=== PATIENT | male | born 1980 | race Caucasian/White ===

== ENCOUNTER → 2018-07-05 | Outpatient (CLI) | payer OTHER ==
[~2018-07-05] MED LIST: ACET325UDC GT; ACET325UDC PO; ACET325UDC PT; ACET650SUP PR; ALBUIS IH; ASPI81CH GT; ASPI81CH PO; ASPI81CH PT; ASPI81EC GT; AZIT200SU PO; Acephen650 MG PR; Acidophilus La100 GM PO; Acidophilus La100 GM PT; Actos15 MG PO; Augmentin 875-1 EACH PO; BACLOFEN; BACLOFEN PUMP IL; Benefiber98 GM PT; Biscolax10 MG PR; CALCA500S6 GT; CALCA500S6 PO; CALCA500S6 PT; CEPH250SUA PO; CETI1SY PO; CHOL10002 GT; CHOL10002 PT; CODACEE120 PO; COLC.6 GT; COLC.6 PO; COLON HEALTH; COLON HEALTH GT; CVS DISPOSABLE399 ML PR; DIAZ10 PO; DIAZ2 GT; DIAZ5 GT; DIAZ5 PO; DIAZ5 PT; DIAZEPAM; DILT30 PO; DILT60 GT; DILT60ER PO; DIOCTO PT; DIVA125 PO; DIVA125EC PO; DOC100SO GT; ERGO400 GT; ERGO400 PO; ERYT.5TO BOTHEYES; FIBE4P PO; FLUC150A PO; FLUO.01TC TOP; FLUO60T TOP; FLUOCIN ACET; FLUT.05NI; FURO100EL PO; FURO100EL PT; FURO20 PO; FURO40 GT; Flonase 0.05% N16 GM INH; GLIP5 PT; GUAI100SY PO; HYDACE5 GT; HYDACE7.5 PO; HYDACE7.5L GT; HYDACE7.5L PO; HYDCOR2.5B TOP; HYDROCODON-ACET15 ML PT; HYDROCORTISONE CREAM; HYDROQUINONE; IBUP100S PO; INSUASPI SC; INSULANPEN SC; IPRAIS NEB; ISOSOURCE GT; K-Phos Origina500 MG PO; LACT PO; LANS30EC PO; LAVAP17G PO; LEVA.63IS IH; LEVFLO500 PT; LEVO750 PO; LIQUACEL LIQUID30 ML PT; LOPE2C PT; LORA10 PO; Lisinopril2.5 MG PT; METO10SY PO; METO10SY PT; METO25 PT; METO25ER PO; METO50 GT; METO50 PO; METO50 PT; METR500 PT; MI ACID; MOMENI; MUPI2TC TOP; MUPI2TO TOP; NUTREN; NYST100P TOP; NYST100TC TOP; OLME20 GT; OLME20 PO; OMEP20ER PO; OMEP20ER PT; ONDA4SO PT; PIOG15 PT; POLY500 PO; POTA20LUD GT; POTA20LUD PO; POTA20LUD PT; Phospha 250 Ne250 MG PT; Potassium Chloride GT; QPAP; SENN8.8S8 GT; SENN8.8S8 PO; SILACE; SIME80CH GT; SODPHOSO PR; SPIR25 PO; Senna Laxative8.6 MG PT; TERA5 GT; TERA5 PO; TOUJEO SOL300 UNIT/1 SC; VALP250S60; VALP250S60 GT; VALP250S60 PO; VALP250S60 PT; ZERTEC; ZITHROMAX; [UNRECOGNIZED DRUG - CODE]; [UNRECOGNIZED DRUG - OTHER]; [UNRECOGNIZED DRUG - OTHER] PT
[2018-07-05 13:41] LABS: Appearance, Urine Clear (Clear); Bilirubin, Urine Neg (Neg); Blood, Urine Neg (Neg); Color, Urine Yellow (P-Yellow); Glucose Qualitative, Urine 1+ (Neg); Ketones, Urine Neg (Neg); Leukocyte Esterase, Urine Neg (Neg); Nitrite, Urine Neg (Neg); Protein, Urine Neg (Neg); Specific Gravity, Urine 1.015 (1.003-1.022); Urobilinogen, Urine 3+ (Normal)
== END ==
LOC: LAB SRC 05:00 → LAB SHORT 05:00
PROVIDERS: Internal Medicine
DX: N39.0 Urinary tract infection, site not specified (principal)
CPT/HCPCS: 81003

== ENCOUNTER → 2018-10-07 | Outpatient (CLI) | payer OTHER | END | disposition home or self-care (01) | LOC: LAB SRC 11:35 → LAB SHORT 11:35 → EDSTATUS 10-06 10:35 → LAB FUT 10-06 10:35 | DX: R30.0 Dysuria (principal) | CPT/HCPCS: 87077; 87086; 87186 ==

== ENCOUNTER → 2018-12-16 | Outpatient (CLI) | payer OTHER ==
[2018-12-16 13:11] LABS: Bilirubin, Urine Neg (Neg); Blood, Urine 4+ (Neg); Glucose Qualitative, Urine Neg (Neg); Ketones, Urine Neg (Neg); Leukocyte Esterase, Urine 3+ (Neg); Nitrite, Urine Neg (Neg); Protein, Urine 3+ (Neg); Specific Gravity, Urine 1.015 (1.003-1.022); Urobilinogen, Urine 1+ (Normal)
[2018-12-16 13:25] LABS: Appearance, Urine Turbid (Clear); Color, Urine Yellow (P-Yellow)
[2018-12-16 13:32] LABS: White Blood Cells, Urine TNTC /hpf (0-5)
[2018-12-16 13:33] LABS: Bacteria Many /hpf; Squamous Epithelial Cells Few /hpf (Few); Transitional Epithelial Cells Few /hpf (0-Rare)
== END | disposition home or self-care (01) ==
LOC: LAB SHORT 10:06 → LAB SRC 10:06 → EDSTATUS 09-02 14:05 → LAB FUT 09-02 14:05
PROVIDERS: Internal Medicine
DX: R30.0 Dysuria (principal)
CPT/HCPCS: 81001; 87077; 87086; 87186

== ENCOUNTER → 2019-05-12 | Outpatient (CLI) | payer OTHER ==
[~2019-05-12] MED LIST changes: +Ativan1 MG PO; +HIPREX1 GM PT; +MORP20L SL; +PHILLIPS' COLO1 EACH PT; +SPRITAM250 MG PO; -VALP250S60 PT; +Vitamin C100 M1 PT; +Vitamin D2000 UNIT PT; +[UNRECOGNIZED DRUG - OTHER] PT
[2019-05-12 18:26] LABS: Bilirubin, Urine Neg (Neg); Blood, Urine Neg (Neg); Glucose Qualitative, Urine Neg (Neg); Ketones, Urine Neg (Neg); Leukocyte Esterase, Urine 1+ (Neg); Nitrite, Urine Neg (Neg); Protein, Urine Neg (Neg); Urobilinogen, Urine 1+ (Normal)
[2019-05-12 19:15] LABS: Appearance, Urine Hazy (Clear); Color, Urine Yellow (P-Yellow)
[2019-05-12 19:16] LABS: Red Blood Cells, Urine Not Seen /hpf (0-2); White Blood Cells, Urine 0-2 /hpf (0-5)
[2019-05-12 19:17] LABS: Bacteria Mod /hpf; Squamous Epithelial Cells Rare /hpf (Few); Triple Phosphate Crystals Mod /hpf
== END | disposition home or self-care (01) ==
LOC: LAB SHORT 13:28 → LAB SRC 13:28 → LAB FUT 04-29 16:20
PROVIDERS: Internal Medicine
DX: R30.0 Dysuria (principal)
CPT/HCPCS: 81001; 87077; 87086; 87186

== ENCOUNTER 2019-06-19 11:57 | Inpatient (IN) | payer OTHER ==
[~2019-06-19] VITALS: Ht 162.6 cm; Wt 65.3 kg
[~2019-06-19 11:57] MED LIST changes: -Ativan1 MG PO; -HIPREX1 GM PT; -MORP20L SL; -PHILLIPS' COLO1 EACH PT; -SPRITAM250 MG PO; -Vitamin C100 M1 PT; -Vitamin D2000 UNIT PT
[2019-06-19 12:25] LABS: Calcium, Ionized (POC) 1.05 mmol/L (1.10-1.46); Chloride (POC) 111 mmol/L (98-108); Creatinine (POC) 1.9 mg/dL (0.8-1.3); Glucose (ISTAT POC) 605 mg/dL (70-99); Potassium (POC) 3.8 mmol/L (3.5-5.5); Sodium (POC) 149 mmol/L (135-148); Total CO2 (POC) 25 mmol/L (21-32)
[2019-06-19 12:27] LABS: BASOPHILS ABSOLUTE AUTO 0.07 K/mm3 (0.00-0.23); BASOPHILS PERCENT AUTO 0 % (0-2); EOSINOPHILS PERCENT AUTO 0 % (0-6); Hematocrit 50.4 % (37.0-53.0); Hemoglobin 15.3 g/dL (13.5-17.5); IMMATURE GRAN ABSOLUTE AUTO 0.33 K/mm3 (0.00-0.10); IMMATURE GRAN PERCENT AUTO 2 % (0-1); LYMPHOCYTES ABSOLUTE AUTO 0.89 K/mm3 (0.84-5.20); LYMPHOCYTES PERCENT AUTO 4 % (21-46); MONOCYTES ABSOLUTE AUTO 1.17 K/mm3 (0.16-1.47); MONOCYTES PERCENT AUTO 5 % (4-13); Mean Corpuscular HGB Conc 30.4 g/dL (31.5-36.5); Mean Corpuscular Volume 92 fL (80-100); Mean Platelet Volume 10.9 fL (9.1-12.4); NEUTROPHILS PERCENT AUTO 89 % (41-73); NRBC ABSOLUTE 0.08 K/mm3 (0.00-0.02); NRBC Auto 0.4 /100 WBC (0.0-0.2); Platelet Count 370 K/mm3 (150-400); RDW Coefficient Variation 18.6 % (11.7-14.2); RDW Standard Deviation 58.1 fL (35.1-46.3); Red Blood Cell Count 5.46 M/mm3 (4.30-5.90); White Blood Cell Count 22.16 K/mm3 (4.00-11.30)
[2019-06-19 12:44] LABS: Albumin, Blood 2.9 g/dL (3.4-5.0); Bun/Creatinine Ratio 35.1 (12.0-20.0); Calcium, Blood 8.2 mg/dL (8.5-10.1); Creatinine, Blood 1.68 mg/dL (0.60-1.20); Potassium, Blood 3.7 mmol/L (3.5-5.5)
[2019-06-19 12:45] LABS: Albumin/Globulin Ratio 0.5 (0.8-1.8); Bilirubin, Total 0.6 mg/dL (0.1-1.0); Globulin, Blood 5.4 g/dL (2.2-4.0); International Normalized Ratio 1.22; Prothrombin Time Results 12.9 Sec (9.7-11.5); Total Protein, Blood 8.3 g/dL (6.4-8.2)
[2019-06-19 14:12] LABS: Source, Urine Catheter
[2019-06-19 14:15] LABS: Bilirubin, Urine Neg (Neg); Blood, Urine 2+ (Neg); Glucose Qualitative, Urine 4+ (Neg); Ketones, Urine 1+ (Neg); Leukocyte Esterase, Urine 1+ (Neg); Nitrite, Urine Neg (Neg); Protein, Urine 3+ (Neg); Urobilinogen, Urine 1+ (Normal)
[2019-06-19 14:21] LABS: Appearance, Urine Clear (Clear); Color, Urine Amber (P-Yellow)
[2019-06-19 14:25] LABS: Bacteria Few /hpf; Squamous Epithelial Cells Rare /hpf (Few)
[2019-06-19 17:14] LABS: Glucose, Blood 326 mg/dL (70-99)
--- NOTE | 2019-06-19 18:22 | NUR ---
PT TO ICU 3 FROM ER AT 1516, CARDIAC MONITORING INITIATED. HR 160, SBP 80'S, TEMPERATURE 101.6, PT HOT TO TOUCH, UE'S AND HEAD ARE TREMULOUS, MOTHER AT BEDSIDE STATES THIS IS NOT NORMAL. 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 SPO2 MID 90'S ON 6L/NC, LS COARSE T/O, NT SUCTIONING YIELDS MODERATE AMOUNTS OF WHITE SPUTUM. GUO WITH CLOUDY MARCELA URINE, 1+ EDEMA TO LE'S. CAP REFILL SLUGGISH IN ALL EXTREMS, HAND AND FEET COOL TO TOUCH, LE PULSES BY DOPPLER ONLY. DR. SHAH NOTIFIED OF PT'S VS AT 1630, INSTRUCTED TO CONTINUE IVF AND RESUME ABX. VANCO, ROCEPHIN, AND ZITHROMAX INFUSING, IVF CONTINUED. LACTIC ACID LEVEL INCREASED, TEMPERATURE UP TO 103.3, MAP 50'S-60'S, HR REMAINS 160'S. TYLENOL ADMINISTERED, DR. SHAH NOTIFIED, DR. GIPSON CONSULTED. LEVOPHED INITIATED PER DR. GIPSON. INSULIN ADMINISTERED PER ORDERS FOR HYPERGLYCEMIA, WILL CONTINUE TO MONITOR SUGARS. ORAL TEMP AT 1825 102.9, PT CONTINUES TO SHIVER. MOTHER NO LONGER AT BEDSIDE. REPORT TO ONCOMING SHIFT.
--- NOTE | 2019-06-19 21:00 | NUR ---
ASSUMPTION OF CARE ASSUMED CARE OF PT @ 1850. DR GIPSON IN ROOM, PT UNRESPONSIVE, TREMULOUS, POSS SEIZURES, 8MG LORAZEPAM ORDERED AND ADMINISTERED. O2 SATURATIONS DECREASED TO 73%, NON REBREATHER MASK APPLIED @ 15L, SLOW RECOVERY, RESPIRATIONS EVEN BUT LABORED, TACHYPNEIC WITH RR 25-30'S, LS COARSE, ORAL AND NT SUCTION REQUIRED TO CLEAR SECRETIONS. MONITOR SHOWS TACHYCARDIA, HR 150-160'S, LEVO INFUSING @ 3mcg/min, 4TH LITER BOLUS OF LR INFUSING. RADIAL PULSES STRONG, L HAND PURPLE DISCOLORATION NOTED. EXTREMITIES COOL. PEG IN PLACE AT UPPER MID ABD, BOWEL TONES HYPOACTIVE. GUO IN PLACE DRAINING DARK YELLOW URINE. CONTRACTURES NOTED BILAT TO HANDS AND LEGS, HX OF CEREBRAL PALSY, WHEELCHAIR BOUND AT BASELINE.
[2019-06-19 22:16] LABS: Valproic Acid 15.2 ug/mL (50.0-100.0)
[2019-06-19 22:18] LABS: Anion Gap 7 mmol/L (6-16); Blood Urea Nitrogen 58 mg/dL (8-24); Bun/Creatinine Ratio 31.4 (12.0-20.0); CO2, Blood 27 mmol/L (21-32); Calcium, Blood 8.1 mg/dL (8.5-10.1); Chloride, Blood 121 mmol/L (98-108); Creatinine, Blood 1.85 mg/dL (0.60-1.20); Glomerular Filtration Rate 43 (60-); Glucose, Blood 81 mg/dL (70-99); Potassium, Blood 2.3 mmol/L (3.5-5.5); Sodium, Blood 155 mmol/L (136-145)
--- NOTE | 2019-06-19 23:38 | NUR ---
CRITICAL LAB/PEG CALL PLACED TO DR GIPSON REGARDING LABS (POTASSIUM 2.3, LACTIC 2.3, SODIUM 155, GLUCOSE 81), ORDERS TO CHECK CBG Q1H x3, 40 MEQ KCL IV, 80 MEQ KCL PT, AND 1 L D5W @100ml/hr. WHILE ADMINISTERING KCL PT, TUBE BECAME CLOGGED, EFFORTS TO CLEAR TUBE UNSUCCESSFUL. PTS MOTHER STS TUBE HAS NOT BEEN CHANGED IN SEVERAL MONTHS AND HAS EXTRAS AT HOME. MOTHER IS TRAINED TO CHANGE TUBES AND DOES SO AT HOME, CALL TO DR FRED SHANE FOR MOTHER TO CHANGE TUBE AND TO F/U IF THERE ARE ANY DIFFICULTIES.
--- NOTE | 2019-06-20 00:23 | NUR ---
PEG LINE PLACEMENT PTS MOTHER BROUGHT HOME SUPPLIES TO CHANGE PEG TUBE. PLACED WITHOUT DIFFICULTY.
[2019-06-20 03:46] LABS: BASOPHILS ABSOLUTE AUTO 0.03 K/mm3 (0.00-0.23); BASOPHILS PERCENT AUTO 0 % (0-2); EOSINOPHILS PERCENT AUTO 0 % (0-6); Hematocrit 39.4 % (37.0-53.0); Hemoglobin 12.1 g/dL (13.5-17.5); IMMATURE GRAN ABSOLUTE AUTO 0.03 K/mm3 (0.00-0.10); IMMATURE GRAN PERCENT AUTO 0 % (0-1); LYMPHOCYTES PERCENT AUTO 18 % (21-46); MONOCYTES PERCENT AUTO 13 % (4-13); Mean Corpuscular HGB 28.6 pg (26.0-34.0); Mean Corpuscular HGB Conc 30.7 g/dL (31.5-36.5); Mean Corpuscular Volume 93 fL (80-100); Mean Platelet Volume 10.7 fL (9.1-12.4); NEUTROPHILS ABSOLUTE AUTO 6.73 K/mm3 (1.96-9.15); NEUTROPHILS PERCENT AUTO 68 % (41-73); NRBC ABSOLUTE 0.03 K/mm3 (0.00-0.02); NRBC Auto 0.3 /100 WBC (0.0-0.2); Platelet Count 58 K/mm3 (150-400); RDW Coefficient Variation 17.9 % (11.7-14.2); RDW Standard Deviation 59.9 fL (35.1-46.3); Red Blood Cell Count 4.23 M/mm3 (4.30-5.90); White Blood Cell Count 9.89 K/mm3 (4.00-11.30)
[2019-06-20 04:01] LABS: Albumin, Blood 2.4 g/dL (3.4-5.0); Albumin/Globulin Ratio 0.6 (0.8-1.8); Bilirubin, Total 0.4 mg/dL (0.1-1.0); Bun/Creatinine Ratio 31.3 (12.0-20.0); Calcium, Blood 7.7 mg/dL (8.5-10.1); Creatinine, Blood 1.79 mg/dL (0.60-1.20); Globulin, Blood 4.3 g/dL (2.2-4.0); Magnesium, Blood 1.9 mg/dL (1.6-2.4); Potassium, Blood 3.2 mmol/L (3.5-5.5); Total Protein, Blood 6.7 g/dL (6.4-8.2)
[2019-06-20] MEDS ORDERED: METO10SY PT (04:26)
[2019-06-20] MEDS ORDERED: DIAZ5 PT (04:27)
[2019-06-20] MEDS ORDERED: Phospha 250 Ne250 MG PT (04:29)
[2019-06-20] MEDS ORDERED: PHILLIPS' COLO1 EACH PT (04:31)
[2019-06-20] MEDS ORDERED: Vitamin C100 M1 PT (04:31)
[2019-06-20] MEDS ORDERED: Vitamin D2000 UNIT PT (04:32)
[2019-06-20] MEDS ORDERED: CALCA500S6 PT (04:34)
[2019-06-20] MEDS ORDERED: TOUJEO SOL300 UNIT/1 SC (04:36)
[2019-06-20] MEDS ORDERED: HIPREX1 GM PT (04:37)
--- NOTE | 2019-06-20 05:02 | NUR ---
CALL PLACED TO DR GIPSON REGARDING MORNING LABS, UPDATED ON PTS STATUS, 40MEQ KCL IV ORDERED.
--- NOTE | 2019-06-20 06:13 | NUR ---
SHIFT SUMMARY PT OVERALL IMPROVED T/O SHIFT, RESPONDS TO PAINFUL STIMULI, OPENS EYES TO SOUND, STILL DEC LOC PER MOM. LS IMPROVED, DIM IN THE BASES, OXYGEN SATURATIONS>94% ON 2L PER NC. MONITOR SHOWS SINUS TACH, RATE 130'S, LEVO ON SB @ 0100, PT NOW HYPERTENSIVE WITH SBP 130-140'S, INCREASING UP TO 160'S WITH NURSING CARE. PT HAS GROSS MOVEMENT TO UPPER EXTREMITIES. GUO IN PLACE DRAINING YELLOW URINE. MORNING LABS SHOWED LOW POTASSIUM, PHYSICIAN NOTIFED, KCL CURRENTLY INFUSING. 1L D5W INFUSING, CBG'S STABLE @ 102-105. PLAN FOR EEG TODAY, PT PREPPED THIS SHIFT.
--- NOTE | 2019-06-20 10:27 | NUR ---
Pt resting in bed with his eyes closed with no family at bedside at this time. Conferenced with bedside OREN Saucedo and Dr Chun. Pt has shown some improvement. Report given that Pt's mother's goal is to focus on comfort and if needed she is opened to hospice. Palliative Care will remain available for therapeutic visits.
--- NOTE | 2019-06-20 12:29 | NUR ---
Pt visit this afternoon. Pt resting in bed with his eyes closed and is non responsive at this time. Pt appears comfortable with no S/S of distress at this time. Pt's mother is at bedside. Dr Chun is present and educating on Pt's prognosis and options for goals of care. Pt's mother Margo chooses to place Pt on comfort care. This RN remained behind to answer questions and discuss concerns. Margo tearful during visit and offered emotional support. Bedside RN Sheryl and this RN discussed comfort care philosophy. Discussed medications to continue and medications to discontinue. Margo reports she would like to continue tube feedings as Pt can tolerate. Discussed plan to transfer Pt to medical floor. Pt's mother Margo is agreeable for plan. Discussed case with Dr Chun, Dr Mukherjee, and bedside RN Sheryl. Placed order for comfort care, discontinued antibiotics, discontined routine nursing orders, and placed order for transfer to medical floor per V/O from Dr Chun. Palliative Care will remain available.
--- NOTE | 2019-06-20 13:52 | NUR ---
PT ASSESSED AT 0715 THIS AM. PT MINIMALLY RESPONSIVE IN BED. LEVOPHED OFF, BP HTN. PT'S MOTHER AT BEDSIDE. PT GRIMACES TO NOXIOUS STIMULI BUT DOES NOT OPEN EYES. CRACKLES NOTED TO LLL, CLEAR OTHERWISE. HEART RATE 130 SINUS TACH. SATS 92-94% ON 2 L VIA N/C TO MOUTH (PT MOUTH BREATHING ONLY). AT 0750 HEART RATE INCREASED TO 150-160. PT FOUND TO BE HAVING ATYPICAL SEIZURE LIKE ACTIVITY; RYTHMIC TWITCH TO R ARM, HEAD BACK, EYES OPEN, EYE MOVEMENT RYTHMIC/REM MOVEMENTS. ATIVAN 2MG IVP GIVEN STAT WITH GOOD EFFECT. PT RETURNED TO PREVIOUS BASELINE WITHIN 5MIN. AT 0900 PT O2 REQUIREMENTS INCREASED GREATLY. BY 1000 PT WAS REQUIRING AN OXYMIZER AT 12L WITH STATS CONTINUING TO DECLINE. BIPAP WAS CONSIDERED BUT ULTIMATELY DECLINED FOR COMFORT CARE. PALIATIVE CARE AND DR TURNER COUNSELED PT'S MOTHER FOR CLOSE TO AN HOUR. PT CHANGED TO COMFORT CARE AND TRANSFERED TO MEDICAL FLOOR AT 1210. PRIOR TO TAKING PT OFF MONTIORS HEART RATE 140'S+, O2 82-84% ON OXYMIZER 15L, RESP 24.
--- NOTE | 2019-06-20 16:36 | NUR ---
Inital spiritual care note: I met with Zeke's mom, Margo, at bedside. She told me Zeke's story and expressed deep love. She was tearful, but appropriate and responded well to gentle clinical mental health counselor, emotional affirmation, spiritual clinical mental health counselor, and prayer. Zeke appears to be comfortable and well cared-for by nursing. I will remain available.
--- NOTE | 2019-06-20 17:51 | NUR ---
SUMMARY PT TRANSFERRED UP FROM ICU ON COMFORT CARE, PT IS DD, NON-VERBAL, AND BEDBOUND, HE HAS A CHRONIC INDWELLING CATHETER AND A PEG TUBE, PT IS ON 2L NC FOR COMFORT, MOTHER REMAINS AT THE BEDSIDE, PT PLACED ON TRICKLE TUBE FEEDS TOLERATED DESPITE BEING ON COMFORT CARE, PT APPEARS COMFORTABLE, NO ACUTE CHANGES, WILL CONT TO MONITOR
--- NOTE | 2019-06-20 20:00 | NUR ---
FAMILY AT BEDSIDE AND DENIES NEEDS. PLAN TO GET RECLINER CHAIR FOR PT'S MOM WHO PLANS TO STAY THE NIGHT. PT APPEARS COMFORTABLE AT THIS TIME W/EYES CLOSED AND RESPS E/U. HE IS NONVERBAL AT BASELINE AND CURRENTLY ISN'T OPENING EYES TO VOICE. TUBE FEED RUNNING AT 10CC/HR PER DIETARY AND CHRONIC GUO IS PATENT. COMFORT MEASURES BEING MAINTAINED. NO DISTRESS, PAIN OR DISCOMFORT OBSERVED.
--- NOTE | 2019-06-21 01:10 | NUR ---
ROXINOL AND ATROPINE GTTS PROVIDED FOR S/S AIR HUNGER AND DEVELOPMENT OF ORAL SECRETIONS. FAMILY REMAINS AT BEDSIDE. WILL ASSESS FOR EFFECT.
--- NOTE | 2019-06-21 03:50 | NUR ---
PT HAD BM W/ATTENDS CHANGED AND BORIS CARE COMPLETED. PT REPOSITIONED AND SUCTIONED FOR LARGE AMT OF THICK ORAL SECRETIONS. PT SEEMED TO BREATH SOMEWHAT BETTER AFTERWARD. WCTM NEED FOR PRN MEDS BUT PT APPEARS TO BE RESTING W/O S/S DISTRESS AT THIS TIME. FAMILY REMAINS AT BEDSIDE.
--- NOTE | 2019-06-21 06:18 | NUR ---
SUMMARY: PT REMAINS ON COMFORT CARE, IS NONVERBAL AND WAS NONRESPONSIVE MOST OF SHIFT. HE OCCASIONALLY GRIMACED AND OPENED EYES DURING CARE BUT OTHERWISE RESTED COMFORTABLY. ATTENDS CHANGED FOR STOOL INCONTINENCE AND ORAL SUCTIONING PERFORMED PRN FOR THICK SECRETIONS. ATROPINE GTTS WERE COMMENCED FOR GOOD EFFECT AND ROXINOL 10MG PO PRN X1 DOSE WAS GIVEN FOR AN EPISODE OF AIR HUNGER. GUO IS PATENT/DRAINING AND TUBE FEEDING IS RUNNING AT 10 CC/HR. MOUTH CARE PROVIDED PRN AND PT REPOSITIONED PER FAMILY'S REQUESTS. PT'S MOM REMAINS AT BEDSIDE, SUPPORT PROVIDED. TANYA AND REPORT TO DAY RN.
--- NOTE | 2019-06-21 08:58 | NUR ---
Comfort Care Visit: Pt resting in bed with his eyes closed. Pt appears comfortable with no S/S of distress at this time. Pt's mother Margo at bedside. Offered therapeutic listening and support. Discussed the possibility of discharging on hospice if Pt appears to be with us for sometime. Christina reports wishes for Pt to pass at the hospital but is understanding if discharge on hospice is needed. Suggested hospice topic will be revisited if needed. No other concerns reported at this time. Spoke with bedside RN Mark and discussed case. Palliative Care will remain available.
--- NOTE | 2019-06-21 18:29 | NUR ---
SUMMARY PT ON COMFORT CARE, FAMILY IN THE ROOM MOST OF THE TIME, PT REPOSITIONED FOR COMFORT, MED PER EMAR, PLAN TO DC HOME IN AM ON HOSPICE, WILL CONT TO MONITOR
--- NOTE | 2019-06-22 06:14 | NUR ---
ZERO RESIDUAL FROM G TUBE THIS AM. PT TOLERATING TRICKLE FEEDS.
--- NOTE | 2019-06-22 06:15 | NUR ---
SHIFT SUMMARY PT HAS SLEPT THE ENTIRETY OF THE SHIFT AND DOES NOT APPEAR IN ANY PAIN OR DISTRESS. FREE OF SECRETIONS OR AIR HUNGER. TOLERATING TRICKLE FEEDS AT 10 CC HR. PT MOTHER AT BEDSIDE T/O THE SHIFT AND IS ATTENTIVE TO NEEDS. SHE LETS US KNOW WHEN SHE WANTS PT TO BE REPOSITIONED AND STATES EVERY FOUR HOURS BECAUSE THATS HOW SHE DOES IT AT HOME. GUO IN PLACE PATENT AND DRAINING. IV SEIZURE MEDS AND SEIZURE MEDS PER PEG TUBE ORDERED. COMFORT ASSESSED T/O THE SHIFT. PLAN IS FOR DC HOSPICE TODAY. BED IN LOWEST POSITION, CALL LIGHT WITHIN REACH, WILL CONTINUE TO MONITOR AND REPORT TO ONCOMING RN.
--- NOTE | 2019-06-22 06:44 | NUR ---
TUBE FEEDING DAY OREN JOSE STATED THAT SHE CHANGED TUBING AND FEEDS DURING HER SHIFT 06/21/19. PT MOTHER REPORTS THAT SHE HAD DONE SO. HOWEVER PUMP FLASHING THIS AM THAT TUBING NEEDED TO CHANGED, AND THERE IS A LABEL ON THE BAG FROM THE 06/20/19. WITH THIS INDICATOR FROM THE PUMP I DECIDED TO GRAB FRESH TUBING TO CHANGE BAG AND FEEDS. I BROUGHT TUBING IN TO CHANGE BAG. BUT PT MOTHER ADIMATELY REFUSED AND STATED THAT SHE DID NOT HAVE ANY OF HIS SEPCIAL FEEDS HER AND SINCE HE WAS BEING DISCHARGED TODAY THAT SHE DID NOT WANT TO BOTHER WITH IT AND STATES THAT IT WAS CHANGED YESTERDAY.
--- NOTE | 2019-06-22 08:51 | NUR ---
PATIENT RESTING IN BED. PATIENT'S MOTHER IS AT THE BEDSIDE
--- NOTE | 2019-06-22 08:52 | NUR ---
PATIENT'S MOTHER IS AT THE BEDSIDE. MORNING MEDICATIONS GIVEN. NO COMPLAINTS OF PAIN. WILL CONTINUE TO MONITOR.
--- NOTE | 2019-06-22 09:35 | NUR ---
Pt visit this AM accompanied by student nurse Shirley. Pt resting in bed and appears comfortable with no S/S of distress at this time. Pt's mother Margo at bedside. Answered questions and discussed medications. No concerns reported at this time. Spoke with Dr Henriquez and he signs completed POLST. Faxed copy of POLST to medical records and returned orginal copy to Margo. Pallistive Care will remain available.
--- NOTE | 2019-06-22 09:40 | NUR ---
Patients Mother (Margo) gave permission for care at 0830 on 06/22/19.
[2019-06-22] MEDS ORDERED: Ativan1 MG PO (10:24)
[2019-06-22] MEDS ORDERED: MORP20L SL (10:24)
[2019-06-22] MEDS ORDERED: SPRITAM250 MG PO (10:25)
== END 2019-06-22 10:58 | disposition hospice, home (50) | DRG 871 ==
LOC: ER 11:57 → ICUE 15:12 → ICUW 15:12 → ICUE 15:15 → ICUW 06-20 06:48 → MEDS 06-20 12:36
PROVIDERS: Emergency Medicine; Internal Medicine Critical Care Medicine; ADMIT Family Medicine
DX: A41.89 Other specified sepsis (principal); J96.01 Acute respiratory failure with hypoxia; N17.0 Acute kidney failure with tubular necrosis; J18.9 Pneumonia, unspecified organism; R65.21 Severe sepsis with septic shock; F72 Severe intellectual disabilities; E87.0 Hyperosmolality and hypernatremia; N12 Tubulo-interstitial nephritis, not specified as acute or chronic; Z51.5 Encounter for palliative care; G80.9 Cerebral palsy, unspecified; E11.65 Type 2 diabetes mellitus with hyperglycemia; I48.0 Paroxysmal atrial fibrillation; G40.909 Epilepsy, unspecified, not intractable, without status epilepticus; Z93.1 Gastrostomy status; Z66 Do not resuscitate; Q90.9 Down syndrome, unspecified
CPT/HCPCS: 36415; 51702; 71045; 80047; 80048; 80053; 80164; 81001; 82947; 83036; 83605; 83735; 85014; 85025; 85610; 85730; 87086; 93005; 93010; 96361-59; 96365-59; 96375-59; 99285-25; J0456; J0696; J1650; J1815; J1953; J2060; J2543; J3370; J3480; J7030; J7050; J7060; J7070; J7120